=== PATIENT | male | born 1970 | race Caucasian/White ===

== ENCOUNTER → 2018-07-17 | Outpatient (CLI) | payer OTHER | LOC: M.ULTRA 14:20 | DX: M79.662 Pain in left lower leg (principal); M79.89 Other specified soft tissue disorders; Z86.718 Personal history of other venous thrombosis and embolism ==

== ENCOUNTER 2019-03-09 11:12 | Emergency (ER) | payer OTHER ==
[~2019-03-09] VITALS: Ht 180.3 cm; Wt 83.9 kg
[2019-03-09] MEDS ORDERED: COUMADIN7.5 MG PO (11:25)
[2019-03-09] MEDS ORDERED: NEURONTIN 300300 M1 PO (11:25)
[2019-03-09] MEDS ORDERED: PROZAC20 MG PO (11:26)
[2019-03-09] MEDS ORDERED: ALLOPURINOL 10100 M1 PO (11:26)
[2019-03-09] MEDS ORDERED: NORCO 5-325 TA1 EACH PO (12:55)
[2019-03-09 13:18] VITALS: BP 150/105
== END 2019-03-09 13:20 | disposition home or self-care (01) ==
LOC: M.ERS 11:12
DX: S70.01XA Contusion of right hip, initial encounter (principal); F32.9 Major depressive disorder, single episode, unspecified; M10.9 Gout, unspecified; F17.210 Nicotine dependence, cigarettes, uncomplicated; Z88.0 Allergy status to penicillin; W01.0XXA Fall on same level from slipping, tripping and stumbling without subsequent striking against object, initial encounter; Y93.89 Activity, other specified; Y92.89 Other specified places as the place of occurrence of the external cause; Y99.8 Other external cause status

== ENCOUNTER → 2020-05-17 | Outpatient (CLI) | payer OTHER ==
[~2020-05-17] MED LIST: ALLOPURINOL 10100 M1 PO; COUMADIN7.5 MG PO; NEURONTIN 300300 M1 PO; NORCO 5-325 TA1 EACH PO; PROZAC20 MG PO
== END ==
LOC: M.CT 11:23
PROVIDERS: ATTEND Nurse Practitioner Family
DX: N28.1 Cyst of kidney, acquired (principal); E27.8 Other specified disorders of adrenal gland; K76.0 Fatty (change of) liver, not elsewhere classified; I70.0 Atherosclerosis of aorta